=== PATIENT | female | born 1940 ===

== ENCOUNTER 2022-12-16 12:54 | Outpatient (REF) | payer MEDICARE, MEDICAID, SELFPAY ==
[2022-12-16 17:10] LABS: Folate 17.9 ng/mL (> or = 4.0); Vitamin B12 810 pg/mL (200-900)
[2022-12-17 02:36] LABS: Anion Gap 14 (12-20); Blood Urea Nitrogen 15 mg/dL (9-16); Calcium 9.5 mg/dL (8.4-10.2); Carbon Dioxide 26 mmol/L (22-29); Chloride 101 mmol/L (96-108); Estimated Glomerular Filt Rate 60; Glucose Random 150 mg/dL (60-115); Potassium 3.8 mmol/L (3.3-5.1); Sodium 137 mmol/L (135-145)
[2022-12-18 08:17] LABS: Syphilis Screen Nonreactive (Nonreactive)
[2022-12-18 13:47] LABS: Lyme Abs Screen <0.90 index
== END 2022-12-16 12:55 | disposition home or self-care (01) ==
LOC: HO.HHCL 12:54
PROVIDERS: Visit Provider Internal Medicine
DX: E11.65 Type 2 diabetes mellitus with hyperglycemia (principal); R41.89 Other symptoms and signs involving cognitive functions and awareness
CPT/HCPCS: 36415; 80048; 82607; 82746; 86617; 86618; 86780